=== PATIENT | male | born 1990 | race Hispanic/Latino ===

== ENCOUNTER → 2017-07-19 | Outpatient (CLI) | payer MEDICAID ==
[~2017-07-19] MED LIST: GADOBENATE DIMEGLUMINE 20 ML IV ONE
== END | disposition home or self-care (01) ==
LOC: RAH 14:37
PROVIDERS: ATTEND Family Medicine
DX: M51.36 Other intervertebral disc degeneration, lumbar region (principal)
CPT/HCPCS: 72158; A9577